=== PATIENT | female | born 1970 | race American Indian/Alaskan Native ===

== ENCOUNTER 2021-03-27 06:09 | Emergency (ER) | payer BC, OTHER ==
[2021-03-27 07:03] VITALS: BP 165/93
--- NOTE | 2021-03-27 08:26 | Emergency Department Report ---
ED General Adult HPI - General Chief complaint: Medical Clearance Stated complaint: HIGH BP/LOW TEMP Time Seen by Provider: 03/27/21 08:01 Source: patient, EMS Mode of arrival: Stretcher Limitations: No Limitations - History of Present Illness Initial comments: 50-year-old -Italian female patient presents for medical clearance today. Patient states she was referred here from [facility] for medical clearance for admission. She states she is having depression and denies any SI/HI. Patient also states she wants detox from alcohol at [facility]. Last drink was yesterday. She denies any history of alcohol withdrawal seizures or tremors today. No chest pain, shortness of breath, headache, abdominal pain, or urinary symptoms today per patient. Severity scale (0 -10): 0 - Related Data Previous Rx's Medication Instructions Recorded Last Taken Type Ibuprofen [Motrin] 800 mg PO Q8HR PRN #30 tablet 09/05/15 Unknown Rx Allergies Allergy/AdvReac Type Severity Reaction Status Date / Time No Known Allergies Allergy Verified 09/05/15 22:40 ED Review of Systems ROS: Stated complaint: HIGH BP/LOW TEMP Other details as noted in HPI Constitutional: denies: chills, diaphoresis, fever, malaise, weakness Respiratory: denies: shortness of breath Cardiovascular: denies: chest pain Gastrointestinal: denies: abdominal pain, nausea, vomiting Genitourinary: denies: urgency, dysuria, frequency Skin: denies: rash, lesions, change in color Neurological: denies: headache ED Past Medical Hx - Past Medical History Hx Hypertension: Yes Hx Psychiatric Treatment: Yes (DEPRESSION/ BIPOLAR/ ANXIETY) - Surgical History Additional Surgical History: C-SECTIONS X 3. TONSILLECTOMY. HYSTERECTOMY - Social History Smoking Status: Never Smoker Substance Use Type: Alcohol, Prescribed - Medications Home Medications: Home Medications Medication Instructions Recorded Confirmed Last Taken Type Ibuprofen [Motrin] 800 mg PO Q8HR PRN #30 tablet 09/05/15 Unknown Rx ED Physical Exam - General Limitations: No Limitations General appearance: alert, in no apparent distress, obese - Head Head exam: Present: atraumatic, normocephalic - Eye Eye exam: Present: normal appearance. Absent: scleral icterus - Respiratory Respiratory exam: Present: normal lung sounds bilaterally. Absent: respiratory distress - Cardiovascular Cardiovascular Exam: Present: regular rate, normal rhythm - Neurological Exam Neurological exam: Present: alert, oriented X3 - Psychiatric Psychiatric exam: Present: normal affect, normal mood - Skin Skin exam: Present: warm, dry, intact, normal color. Absent: rash ED Course Vital Signs 03/27/21 03/27/21 06:59 08:17 Temperature 98.2 F Pulse Rate 67 Respiratory 16 Rate Blood Pressure 165/93 [Left] O2 Sat by Pulse 100 Oximetry ED Medical Decision Making - Lab Data Result diagrams: 03/27/21 08:19 03/27/21 08:19 - Medical Decision Making 50-year-old -Italian female patient presents for medical clearance today. Patient states she was referred here from [facility] for medical clearance for admission. She states she is having depression and denies any SI/HI. Patient also states she wants detox from alcohol at [facility]. Last drink was yesterday. She denies any history of alcohol withdrawal seizures or tremors today. No chest pain, shortness of breath, headache, abdominal pain, or urinary symptoms today per patient. Labs are negative for any acute abnormalities. Vitals are within normal limits. Patient is medically clear for admission to [facility]. Critical care attestation.: If time is entered above; I have spent that time in minutes in the direct care of this critically ill patient, excluding procedure time. ED Disposition Clinical Impression: Medical clearance for psychiatric admission Disposition: HOME / SELF CARE / HOMELESS Is pt being admited?: No Condition: Stable Additional Instructions: You are medically cleared for admission to a psychiatric facility Referrals: PRIMARY MD ARMANDO [Primary Care Provider] - 3-5 Days
[2021-03-27 08:38] LABS: Hematocrit 44.5 % (30.3-42.9); Hemoglobin 14.5 gm/dl (10.1-14.3); Mean Corpuscular HGB Conc 33 % (30-34); Mean Corpuscular Volume 97 fl (79-97); Platelet Count 218 K/mm3 (140-440); Red Blood Count 4.59 M/mm3 (3.65-5.03); Red Cell Distribution Width 13.8 % (13.2-15.2)
[2021-03-27 08:54] LABS: Alanine Aminotransferase 66 units/L (7-56); Albumin 4.6 g/dL (3.9-5); Blood Urea Nitrogen 9 mg/dL (7-17); Calcium 9.3 mg/dL (8.4-10.2); Hemolysis Index 16
[2021-03-27 08:55] LABS: BUN/Creatinine Ratio 13
[2021-03-27 10:00] LABS: Eosinophils # (Auto) 0.1 K/mm3 (0.0-0.4); Eosinophils % (Auto) 3.1 % (0.0-4.3); Monocytes # (Auto) 0.2 K/mm3 (0.0-0.8); Monocytes % (Auto) 8.8 % (0.0-7.3)
[2021-03-27 11:00] LABS: Bacteria,Urine 3+ /HPF (Negative); Bilirubin,Urine NEG (Negative); Blood,Urine SM (Negative); Color,Urine Yellow (Yellow); Mucus,Urine FEW /HPF; Urobilinogen,Urine < 2.0 mg/dL (<2.0)
[2021-03-27 11:09] LABS: Amphetamine Screen,Urine Negative; Benzodiazepines Screen,Urine Negative; Cocaine Screen,Urine Negative; Methadone Screen,Urine Negative; Opiate Screen,Urine Negative
[2021-03-27 11:30] LABS: Cannabinoid Screen,Urine Positive
[2021-03-27 17:43] LABS: Total Cells Counted 100
== END 2021-03-27 11:49 | disposition home or self-care (01) ==
LOC: ED 06:09
DX: F32.9 Major depressive disorder, single episode, unspecified (principal); Z13.30 Encounter for screening examination for mental health and behavioral disorders, unspecified; I10 Essential (primary) hypertension; F41.9 Anxiety disorder, unspecified; Z90.710 Acquired absence of both cervix and uterus; Z98.890 Other specified postprocedural states
CPT/HCPCS: 36415; 80053; 80307; 80320; 81001; 84703; 85007; 85025; 99283; G0480